=== PATIENT | male | born 1985 | race African-American/Black ===

== ENCOUNTER 2016-08-22 17:19 | Emergency (ER) | payer OTHER ==
[~2016-08-22] VITALS: Ht 188 cm; Wt 102.5 kg
[2016-08-22] MEDS ORDERED: ZOFRAN ODT4 M1 SL (19:22)
[2016-08-22] MEDS ORDERED: TAMIFLU75 M1 PO (19:22)
--- NOTE | 2016-08-22 19:23 | ED INFLUENZA/URI COMPLAINT ---
History of Present Illness General Chief Complaint: Upper Respiratory Sx/Fever Stated Complaint: DIARRHEA,FEVER,CHILLS Source: patient Exam Limitations: no limitations Vital Signs & Intake/Output Vital Signs & Intake/Output Vital Signs Date Time Temp Pulse Resp B/P Pulse O2 O2 Flow FiO2 Ox Delivery Rate 08/220 101.2 93 18 107/57 94 Room Air 08/22 2009 Room Air 08/22 1945 102.4 100 18 129/60 93 Room Air 08/22 1740 101.3 08/22 1726 101.3 103 20 127/80 98 Room Air ED Intake and Output 08/23 0000 08/22 1200 Intake Total Output Total Balance Patient 226 lb Weight Allergies Coded Allergies: No Known Allergies (08/22/16) Reconcile Medications Ondansetron (Zofran Odt) 4 MG TAB.RAPDIS 1 TAB SL TID PRN nausea Oseltamivir Phosphate (Tamiflu) 75 MG CAPSULE 1 CAP PO BID flu Triage Note: TRIAGE: PT TO ER C/C DIARRHEA X 1 EPISODE YESTERDAY, FEVER AND CHILLS TODAY. ALSO COMPLAINS OF GENERALIZED ACHES, NASAL CONGESTION AND PRODUCTIVE COUGH WITH YELLOW PHLEGM REPORTED. TEMP 101.3 AT TRIAGE. LAST DOSE OF THERMAFLU AND ADVIL 6 HOURS AGO. MEDICATED WITH TYLENOL AT TRIAGE. Triage Nurses Notes Reviewed? yes HPI: 31-year-old male multiple medical complaints, fever or flulike illness cough congestion and rhinorrhea diarrhea body aches chills diaphoresis generalized malaise. Started this morning, sudden onset severe, his fiance's son is also sick with same. He did not get a flu shot this year. He has cough congestion that is nonproductive. He has taken Advil this morning with minimal relief. Symptoms are moderate to severe (ANITA WAITE) Past History Travel History Traveled to [place] past 21 day No Medical History Any Pertinent Medical History? 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 No (ANITA WAITE) Review of Systems Review of Systems Constitutional: Reports: see HPI. EENTM: Reports: see HPI. Respiratory: Reports: see HPI. Cardiovascular: Reports: no symptoms. GI: Reports: no symptoms. Genitourinary: Reports: no symptoms. Musculoskeletal: Reports: no symptoms. Skin: Reports: no symptoms. Neurological/Psychological: Reports: no symptoms. Hematologic/Endocrine: Reports: no symptoms. Immunologic/Allergic: Reports: no symptoms. All Other Systems: Reviewed and Negative (ANITA WAITE) Physical Exam Physical Exam Ears, Nose, Throat: normal ENT inspection, moist mucous membrane, hearing grossly normal, Tympanic normal, pharynx normal, nasal congestion Comments: Well-developed well-nourished person in no acute distress HEENT: Normal EENT exam, extraocular motion intact, no nystagmus. Pupils equally round and reactive to light. Nose is atraumatic. External auditory canal and Tympanic membranes clear. Pharynx normal. No swelling or edema. Neck: Supple, no lymphadenopathy, normal range of motion without pain or tenderness Back: Nontender, no CVA tenderness. Full range of motion Cardiovascular: Regular rate and rhythms no murmurs, normal JVP Respiratory: Chest nontender. No respiratory distress. Breath sounds clear to auscultation bilaterally Abdomen: Soft, nontender nondistended, no appreciable organomegaly. Normal bowel sounds. No ascites Extremity: No edema, no calf tenderness to palpation, normal and equal pulses. Neuro: Alert oriented x3, motor sensory normal, cranial nerves II through XII grossly intact. Skin: No appreciable rash on exposed skin, skin is warm and dry. Psych: Mood and affect is normal, memory and judgment is normal. Core Measures Severe Sepsis Present: No Septic Shock Present: No (ANITA WAITE) Progress Differential Diagnosis: influenza, meningitis, neutropenia, otitis, pneumonia, pharyngitis, sinusitis Plan of Care: Orders Procedure Date/time Status RAPID VIRAL INFLUENZA A 08/22 1731 Complete Microbiology 08/22 1741 NASOPHARYN: Influenza Virus A & B Rapid Smear - COMP INFLUENZA TYPE A Initial ED EKG: none Comments: Patient with influenza a, we'll treat with Tamiflu, given Tylenol here and Toradol 30 mg IM and Zofran for nausea. Recommended supportive care (ANITA WAITE) Departure Departure Disposition: HOME OR SELF CARE Condition: Stable Clinical Impression Primary Impression: Influenza A Referrals: PATIENT HAS NO PRIMARY CARE DR (PCP/Family) Additional Instructions: drink plenty of fluids, motrin and tylenol for fever and body aches. Departure Forms: Customer Survey General Discharge Information Prescriptions: Current Visit Scripts Ondansetron (Zofran Odt) 1 TAB SL TID PRN nausea #10 TAB Oseltamivir Phosphate (Tamiflu) 1 CAP PO BID #10 CAP (ANITA WAITE) PA/EMPLOYEE BENEFITS MANAGER Co-Sign Statement Statement: ED Attending supervision documentation- [] I saw and evaluated the patient. I have also reviewed all the pertinent lab results and diagnostic results. I agree with the findings and the plan of care as documented in the PA's/EMPLOYEE BENEFITS MANAGER's documentation. [X] I have reviewed the ED Record and agree with the PA's/EMPLOYEE BENEFITS MANAGER's documentation. [] Additions or exceptions (if any) to the PAs/EMPLOYEE BENEFITS MANAGER's note and plan are summarized below: [] (JOSH DE SANTIAGO,PINKY Villanueva)
[2016-08-22 21:10] VITALS: BP 107/57
== END 2016-08-22 21:13 ==
LOC: ERH 17:19
DX: J10.1 Influenza due to other identified influenza virus with other respiratory manifestations (principal)
CPT/HCPCS: 87804; 87804-59; 96372; J1885; J3101

== ENCOUNTER 2016-09-28 12:11 | Emergency (ER) | payer OTHER ==
[~2016-09-28] VITALS: Ht 188 cm; Wt 102.1 kg
[~2016-09-28 12:11] MED LIST: TAMIFLU75 M1 PO; ZOFRAN ODT4 M1 SL
--- NOTE | 2016-09-28 12:55 | ED GENERAL ADULT ---
History of Present Illness General Chief Complaint: Hand or Wrist Injury Stated Complaint: BROKEN R HAND MIDDLE FINGER KNUCKLE? Source: patient Exam Limitations: no limitations Vital Signs & Intake/Output Vital Signs & Intake/Output Vital Signs Date Time Temp Pulse Resp B/P Pulse O2 O2 Flow FiO2 Ox Delivery Rate 09/28 1342 96.7 88 18 116/63 98 Room Air 09/28 1312 98 Room Air 09/28 1216 98.1 65 18 136/78 95 Allergies Coded Allergies: No Known Allergies (08/22/16) Reconcile Medications No Known Home Medications Triage Note: C/O RIGHT HAND KNUCKLE X3 DAYS. PT HAD INJURED HIS HAND WHILE SPARING. PT HAS BEEN ICING AND TOOK MOTRIN WITH SOME RELIEF. "I WANT TO MAKE SURE IT'S NOT BROKEN" Triage Nurses Notes Reviewed? yes Onset: Abrupt Duration: day(s): Timing: recent history HPI: 09/28/16 1 PM 31-year-old male presents to the emergency department complaining of right hand pain. The patient apparently punched a wall on Wednesday. He has isolated tenderness to the right third digit knuckle. He denies any other complaints. No past medical history past medical history is otherwise negative. He declined pain medication The onset of the symptoms were abrupt, the duration has been for days, the severity is significant as his symptoms required him to come to the emergency department for care. Past History Travel History Traveled to [place] past 21 day No Medical History Any Pertinent Medical History? 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 No Review of Systems Review of Systems Constitutional: Reports: no symptoms. EENTM: Reports: no symptoms. Respiratory: Reports: no symptoms. Cardiovascular: Reports: no symptoms. GI: Reports: no symptoms. Genitourinary: Reports: no symptoms. Musculoskeletal: Reports: see HPI. Skin: Reports: no symptoms. Neurological/Psychological: Reports: no symptoms. Hematologic/Endocrine: Reports: no symptoms. Physical Exam Physical Exam General Appearance: well developed/nourished, alert, awake, anxious, mild distress Head: atraumatic, normal appearance Eyes: Bilateral: normal appearance, PERRL, EOMI. Ears, Nose, Throat: normal pharynx, normal ENT inspection Neck: normal inspection Respiratory: no respiratory distress Cardiovascular: regular rate/rhythm Peripheral Pulses: 4+ radial (R) Back: normal range of motion Extremities: swelling, tenderness, RIGHT METACARPAL PHALANGEAL JOINT, NO LIGAMENT INSTABILITY, NO SNUFFBOX TENDERNESS. RADIAL ULNAR AND MEDIAN NERVE FUNCTION WAS INTACT,TO THE RIGHT HAND. Neurologic/Psych: no motor/sensory deficits, awake, alert, oriented x 3 Skin: intact, normal color, warm/dry Core Measures ACS in differential dx? No CVA/TIA Diagnosis: No Severe Sepsis Present: No Septic Shock Present: No Progress Differential Diagnoses I considered the following diagnoses in my evaluation of the patient: [Fracture, dislocation, posttraumatic arthritis, ligament injury] Plan of Care: Orders Procedure Date/time Status XRY-HAND, 3 View RIGHT 09/28 1307 Active Initial ED EKG: none Departure Departure Disposition: HOME OR SELF CARE Condition: Stable Clinical Impression Primary Impression: Contusion Referrals: PATIENT HAS NO PRIMARY CARE DR (PCP/Family) Departure Forms: Customer Survey General Discharge Information Prescriptions: Current Visit Scripts No Known Home Medications Comments The patient has no acute fracture IPRESSION: Possible old fracture deformity of the right 5th metacarpal. No definite acute fracture. Ulnar soft tissue swelling. DICTATED BY: JESICA BOWMAN MD DATE/TIME DICTATED:09/28/161333 SCRAP BREAKER:GAURI DATE/TIME TRANSCRIBED:09/28/161333 CONFIDENTIAL, DO NOT COPY WITHOUT APPROPRIATE AUTHORIZATION. <Electronically signed in Other Vendor System> SIGNED BY: JESICA BOWMAN MD [id number] The patient was treated with a finger splint to the right third digit, including immobilization of the metacarpophalangeal joint. This was placed by the medical student under my supervision. He was instructed to follow-up with his doctor this week if not much improved. Critical Care Note Critical Care Note Critical Care Time: non-applicable
[2016-09-28 13:42] VITALS: BP 116/63
--- NOTE | 2016-09-28 13:52 | RADIOLOGY REPORT ---
EXAMINATION: XR HAND, RIGHT CLINICAL INFORMATION: Punched wall. Evaluate for fracture right hand. COMPARISON: None. TECHNIQUE: PA, oblique, and lateral views of the right hand are obtained. FINDINGS: There is mild deformity of the proximal to mid 5th metacarpal which may represent an old healed fracture. There is no definite acute fracture or malalignment. There is ulnar-sided soft tissue swelling. IMPRESSION: Possible old fracture deformity of the right 5th metacarpal. No definite acute fracture. Ulnar soft tissue swelling.
== END 2016-09-28 14:33 ==
LOC: ERH 12:11
DX: S60.221A Contusion of right hand, initial encounter (principal); W22.01XA Walked into wall, initial encounter; Y93.9 Activity, unspecified; Y92.9 Unspecified place or not applicable
CPT/HCPCS: 73130-RT